=== PATIENT | male | born 1970 | race African-American/Black ===

== ENCOUNTER 2018-02-28 20:31 | Emergency (ER) | payer MEDICAID ==
[~2018-02-28] VITALS: Ht 182.9 cm; Wt 83.9 kg
[~2018-02-28 20:31] MED LIST: ACET-907 PO; ASCO500C16 PO; BACL20TA PO; CRAN400C PO; CYCL-289 PO; DIAZ2TAB PO; DOCU-270 PO; GABA300C PO; PSYL1PAC8 PO; TERA2CAP13 PO; VITA400C24 PO
[2018-02-28 20:35] VITALS: BP 102/62
--- NOTE | 2018-02-28 21:08 | NUR ---
WAITING FOR TRANSPORT
== END 2018-02-28 21:47 ==
LOC: ER 20:35
DX: R20.2 Paresthesia of skin (principal); D64.9 Anemia, unspecified; G83.9 Paralytic syndrome, unspecified
CPT/HCPCS: A4606; Z7610